=== PATIENT | male | born 1975 ===

== ENCOUNTER 2018-04-15 05:38 | Observation (INO) | payer OTHER ==
[2018-04-15] VITALS (14 sets, daily range): BP systolic 116–132; BP diastolic 71–88
[~2018-04-15] VITALS: Ht 177.8 cm; Wt 78.5 kg
[~2018-04-15 05:38] MED LIST: NKM
[2018-04-15] MEDS ORDERED: EPINEPHrine 1mg/1ml Amp ONE (06:55)
[2018-04-15] MEDS ORDERED: Vancomycin 1gm inj IVPB ONE (06:56)
[2018-04-15] MEDS ORDERED: Thrombin 5000 units spray kit TOPIC ONE (06:56)
[2018-04-15] MEDS ORDERED: Bupivacaine 0.5% Inj 30 ml vial INJ ONE (06:57)
[2018-04-15] MEDS ORDERED: Thrombin 5000 units TOPIC ONE (06:57)
[2018-04-15] MEDS ORDERED: Gelfoam Size TOPIC ONE (06:57)
[2018-04-15] MEDS ORDERED: Gelfoam Absorbable 1gm powder pkt TOPIC ONE (06:58)
[2018-04-15] MEDS ORDERED: Bacitracin 50000 Units Vial ONE (06:58)
[2018-04-15] MEDS ORDERED: NS Irrig 1000ml ONE (07:00)
[2018-04-15] MEDS ORDERED: Sterile Water Irrig 1000ml IRRIG ONE (07:00)
[2018-04-15] MEDS ORDERED: LR 1000ml ONE (07:00)
--- NOTE | 2018-04-15 07:01 | Anethesia Preoperative Eval ---
Anesthesia Pre-op PMH/ROS General Date of Evaluation: Apr 15, 2018 Time of Evaluation: 07:00 Anesthesiologist: ASA Score: ASA 2 Mallampati Score Class I : Soft palate, uvula, fauces, pillars visible Class II: Soft palate, uvula, fauces visible Class III: Soft palate, base of uvula visible Class IV: Only hard plate visible Mallampati Classification: Class II Surgeon: alta Diagnosis: lumbar radiculopathy Surgical Procedure: left L4,5 decompression and microdiscectomy Anesthesia History: none Allergies: Coded Allergies: No Known Allergies (Unverified , 04/14/18) Medications: see eMAR Past Medical History Cardiovascular: Denies: HTN, CAD, [place], valve dz, arrhythmia, other Pulmonary: Denies: asthma, COPD, DORYS, other Gastrointestinal/Genitourinary: Denies: GERD, CRI, ESRD, other Neurologic/Psychiatric: Denies: dementia, CVA, depression/anxiety, TIA, other Endocrine: Denies: DM, hypothyroidism, steroids, other HEENT: Denies: cataract (L), cataract (R), glaucoma, [place] (L), [place] (R), other Hematology/Immune: Denies: anemia, DVT, bleeding disorder, other Musculoskeletal/Integumentary: Denies: OA, RA, DJD, DDD, edema, other Anesthesia Pre-op Phys. Exam Physician Exam Last Vital Signs Date Time Temp Pulse Resp B/P (MAP) Pulse Ox O2 Delivery O2 Flow Rate FiO2 04/15/18 06:13 97.6 76 18 130/88 97 Room Air 97.6 Constitutional: NAD Cardiovascular: RRR Respiratory: CTA Gastrointestinal: S/NT/ND Airway Exam Mallampati Score: Class II MO: full ROM: full Teeth: intact Dentures: no upper, no lower Anesthesia Pre-op A/P Risk Assessment & Plan Assessment: asa 2 Plan: ETGA Pre-Antibiotics Drug: ancef 2 gams Given Within 1 Hr of Incision: Yes Time Given: 07:50 Ara Velarde M.D. Apr 15, 2018 07:01
[2018-04-15] MEDS ORDERED: Neostigmine 1mg/ml 10ml Inj ONE (07:08)
[2018-04-15] MEDS ORDERED: fentaNYL 100 mcg/2 mL IV ONE ×2 (07:08→09:57)
[2018-04-15] MEDS ORDERED: Zemuron 50mg/5ml Inj IV ONE (07:08)
[2018-04-15] MEDS ORDERED: Propofol 200mg/20ml IV ONE (07:19)
[2018-04-15] MEDS ORDERED: Lidocaine 1% MPF 10mg/ml 5ml ONE (07:19)
[2018-04-15] MEDS ORDERED: Ketamine 500mg Inj ONE (07:20)
--- NOTE | 2018-04-15 07:41 | Pre-Procedure Note/Attestation ---
Pre-Procedure Note/Attestation Complete Prior to Procedure Procedure Narrative: l l45 microdecompression and microdiscectomy Indications for Procedure Pre-Operative Diagnosis: lumbar hnp with radiculopathy Attestation I attest that I discussed the nature of the procedure; its benefits; risks and complications; and alternatives (and the risks and benefits of such alternatives ), prior to the procedure, with the patient (or the patient's legal customer contact representative). I attest that, if there was a reasonable possibility of needing a blood transfusion, the patient (or the patient's legal customer contact representative) was given the [facility] standardized written summary, pursuant to the Aníbal Gulshan Blood Safety Act ([place] Health and Safety Code # 1645, as amended). I attest that I re-evaluated the patient just prior to the surgery and that there has been no change in the patient's H&P, except as documented below: Link Churchill MD Apr 15, 2018 07:41
[2018-04-15] MEDS ORDERED: ceFAZolin sod 2 GM in NS 55 ML IVPB ONE (08:00)
[2018-04-15] MEDS ORDERED: Dexamethasone 4mg/ml vial ONE (08:29)
[2018-04-15] MEDS ORDERED: LR 1000ml 1,000 ML IVLG SCH (08:36)
--- NOTE | 2018-04-15 08:40 | Immediate Post-Op Evaluation ---
Immediate Post-Op Evalulation Immediate Post-Op Evalulation Procedure: lft L 4,5 decompression and microdiscectomy Date of Evaluation: Apr 15, 2018 Time of Evaluation: 09:51 IV Fluids: LR 700ml Blood Products: 0 Estimated Blood Loss: 20ml Urinary Output: 0 Blood Pressure Systolic: 128 Blood Pressure Diastolic: 86 Pulse Rate: 80 Respiratory Rate: 21 O2 Sat by Pulse Oximetry: 98 Temperature (Fahrenheit): 98.1 Pain Score (1-10): 3 Nausea: No Vomiting: No Complications none Patient Status: awake, patent, none Hydration Status: adequate Drug: ancef 2 grams Given Within 1 Hr of Incision: Yes Time Given: 07:50 Ara Velarde M.D. Apr 15, 2018 08:40
[2018-04-15] MEDS ORDERED: fentaNYL 100 mcg/2 mL IV PRN (08:45)
[2018-04-15] MEDS ORDERED: DiphenhydrAMINE 50mg/ml Inj IVP PRN (08:45)
[2018-04-15] MEDS ORDERED: Midazolam 2mg/2ml Inj IVP PRN (08:45)
[2018-04-15] MEDS ORDERED: Acetaminophen (Non formulary) 100 ML IV SCH (08:45)
[2018-04-15] MEDS ORDERED: Labetalol 5mg/ml 20ml vial IV PRN (08:45)
--- NOTE | 2018-04-15 09:22 | Brief Operative Note ---
Immediate Post Operative Note Operative Note Pre-op Diagnosis: lumbar hnp with radiculopathy Procedure: l l45 microdecompression and microdiscectomy Post-op Diagnosis: same as pre-op Findings: consistent w/pre-op dx studies Surgeon: Zhao Psychosocial Rehabilitation Counselor: Biju Anesthesiologist: Anesthesia: general Specimen: yes Complications: none Condition: stable Fluids: 700cc Estimated Blood Loss: minimal - 25cc Drains: none Implant(s) used?: No Link Churchill MD Apr 15, 2018 09:22
[2018-04-15] MEDS ORDERED: Ketorolac 30mg Inj ONE (10:01)
[2018-04-15] MEDS ORDERED: D5NS 1000ml IV ONE (10:11)
[2018-04-15] MEDS ORDERED: D5 1/2NS 1000ml IV ONE (10:11)
[2018-04-15] MEDS: Hydromorphone 0.5mg/0.5ml inj IVP PRN ×2 (10:14→10:38)
[2018-04-15] MEDS ORDERED: Morphine Sulfate 2mg/ml Inj(IV/IM USE ONLY) IV PRN ×2 (12:00→16:00)
[2018-04-15] MEDS ORDERED: Naloxone 0.4mg/ml Inj IVP PRN (12:00)
[2018-04-15] MEDS ORDERED: Norco 5mg/325mg tab ORAL PRN (12:00)
[2018-04-15] MEDS ORDERED: Morphine Sulfate 4mg/ml Inj (IV USE ONLY) IV PRN ×2 (12:00)
[2018-04-15] MEDS ORDERED: HYDROcodone/Acetamin 7.5/325 tab ORAL PRN (12:00)
[2018-04-15] MEDS: D5 1/2NS 1,000 ML IV SCH ×2 (12:07→21:23)
--- NOTE | 2018-04-15 12:26 | Diagnostic Imaging Report ---
Indication: Pain, intraoperative Technique: Intraoperative images Comparison: none Findings: There is a needle posterior to the L4 vertebral body. Impression: Intraoperative imaging, as described
--- NOTE | 2018-04-15 13:26 | History and Physical ---
History of Present Illness General Date patient seen: Apr 15, 2018 Present Illness HPI 42 year old male with hx of lumbar hnp with radiculopathy admitted for l l45 microdecompression and microdiscectomy. Post operatively pt is admitted to surgical floor for post-op care. Allergies: Coded Allergies: No Known Allergies (Unverified , 04/14/18) Medication History Scheduled No Known Medications* (NKM - No Known Medications*), 0 ., (Reported) Patient History Healthcare decision maker romaine baig(mother) Resuscitation status Full Code Advanced Directive on File No Past Medical/Surgical History Past Medical/Surgical History: (1) Lumbar radiculopathy Review of Systems All Other Systems: negative except mentioned in HPI Physical Exam General Appearance: WD/WN Lines, tubes and drains: peripheral HEENT: normocephalic, atraumatic Neck: non-tender, normal alignment Respiratory/Chest: chest wall non-tender, lungs clear Breasts: no masses Cardiovascular/Chest: normal peripheral pulses, normal rate Abdomen: normal bowel sounds Genitourinary/Rectal: normal genital exam Last 24 Hour Vital Signs Date Time Temp Pulse Resp B/P (MAP) Pulse Ox O2 Delivery O2 Flow Rate FiO2 04/15/18 12:00 98.7 63 18 130/71 98 Nasal Cannula 3 98.7 04/15/18 11:00 98.7 68 18 118/73 100 Nasal Cannula 3 98.7 04/15/18 11:00 98.7 04/15/18 10:47 98.7 65 16 116/73 98 Nasal Cannula 3 98.7 04/15/18 10:38 98.3 04/15/18 10:38 62 18 130/78 98 Nasal Cannula 3 04/15/18 10:25 68 21 119/72 98 Nasal Cannula 3 04/15/18 10:14 98.3 04/15/18 10:14 69 15 128/75 98 Nasal Cannula 3 04/15/18 10:07 208.6 80 21 98 04/15/18 10:00 69 19 131/87 98 Simple Mask 6 04/15/18 09:55 77 19 131/84 98 Simple Mask 6 04/15/18 09:50 98.1 80 20 128/86 98 Simple Mask 6 98.1 04/15/18 06:13 97.6 76 18 130/88 97 Room Air 97.6 Intake and Output 04/14/18 04/15/18 19:00 07:00 # Voids 1 Height (Feet): 5 Height (Inches): 10.00 Weight (Pounds): 173 Medications Current Medications Medications (Trade) Dose Ordered Sig/Giovanny Route PRN Reason Start Time Stop Time Status Last Admin Dose Admin Acetaminophen/ Hydrocodone Bitart ([place] 5/325) 1 tab Q3H PRN ORAL Mild Pain (Pain Scale 1-3) 04/15/18 12:00 04/22/18 11:59 Acetaminophen/ Hydrocodone Bitart ([place] 7.5/325) 1 tab Q3H PRN ORAL Moderate Pain (Pain Scale 4-6) 04/15/18 12:00 04/22/18 11:59 Acetaminophen/ Hydrocodone Bitart ([place] 7.5/325) 2 tab Q3H PRN ORAL pain scale 7-10 04/15/18 12:00 04/22/18 11:59 Dextrose/Sodium Chloride 1,000 ml @ 100 mls/hr Q10H IV 04/15/18 12:00 05/15/18 11:59 04/15/18 12:07 Docusate Sodium (Colace) 100 mg TWICE A DAY ORAL 04/15/18 18:00 05/15/18 17:59 Morphine Sulfate (Morphine Sulfate) 2 mg Q4H PRN IV Mild Pain (Pain Scale 1-3) 04/15/18 12:00 04/22/18 11:59 Morphine Sulfate (Morphine Sulfate) 4 mg Q3H PRN IV Severe Pain (Pain Scale 7-10) 04/15/18 12:00 04/22/18 11:59 Morphine Sulfate (Morphine Sulfate) 4 mg Q4H PRN IV Moderate Pain (Pain Scale 4-6) 04/15/18 12:00 04/22/18 11:59 Naloxone HCl (Narcan) 0.1 mg PRN PRN IVP RR<12/min, pt unarousable 04/15/18 12:00 05/15/18 11:59 Assessment/Plan Problem List: (1) lumbar hnp with radiculopathy (2) Lumbar radiculopathy ICD Codes: M54.16 - Radiculopathy, lumbar region SNOMED: [id number] Assessment/Plan post op care pain management dvt prophylaxis antiemetics Soniya Hernadez MD Apr 15, 2018 13:26
[2018-04-15] MEDS: Docusate 100mg cap ORAL SCH (17:23)
[2018-04-15] MEDS: HYDROcodone/Acetamin 7.5/325 tab ORAL PRN ×2 (17:24→21:24)
--- NOTE | 2018-04-15 21:31 | Operative Note - Dictated ---
DATE OF OPERATION: 04/15/2018 DATE OF INJURY: 07/30/2015 PREOPERATIVE DIAGNOSIS: L4-L5 disk protrusion with annular fissure/tear with stenosis, impingement, and left lower extremity radiculopathy. POSTOPERATIVE DIAGNOSIS: L4-L5 disk protrusion with annular fissure/tear with stenosis, impingement, and left lower extremity radiculopathy. PROCEDURE PERFORMED: 1. Left L4-L5 interlumbar laminotomy, medial facetectomy, foraminotomy, and microdiskectomy. 2. Intraoperative use of microscope. 3. Intraoperative use of fluoroscopy. SURGEON: Link Churchill M.D. PREANALYTICS TEAM LEAD: Wally Ivy M.D. ANESTHESIA: General endotracheal anesthesia. ANESTHESIOLOGIST: Dr. Velarde. FINDINGS: Central and left paracentral disk herniation/protrusion at L4-L5 causing impingement of the traversing left L5 nerve root with foraminal stenosis of the exiting L4 nerve root. ESTIMATED BLOOD LOSS: Less than 25 mL. FLUIDS: 700 mL of crystalloid. INDICATIONS: This is a pleasant gentleman with failed nonoperative treatment and options for above treatment was given. Risks, alternatives, and benefits were discussed with the patient at length. The patient wished to proceed. DESCRIPTION OF OPERATION: The patient was brought into the operating room supine on a stretcher. Subsequently, appropriate lines were placed. A 2 g of Ancef was administered. Anesthesia was induced and the patient was successfully intubated. Sequential compression devices were placed onto the bilateral lower extremities. The patient was gently turned prone on the Wolf frame table. All bony prominences were well padded. The abdomen was assured to lay freely. The L4-L5 interspace was positively identified via fluoroscopy and an indelible marker was used to glen the midline. Intraoperatively, sterilely draped microscope was brought into the field and at this point, a midline incision was carried out at L4-L5 and subperiosteal dissection of the lamina on the left side was done. A radiopaque marker was placed in the L5 pedicle and thus the L4-L5 interspace was positively identified. At this point, with a high-speed drill, straight and curved curettes, # 2 through #5 Kerrison punches, an interlumbar laminotomy and medial facetectomy was accomplished. Ligamentum flavum was removed. The medial aspect of the superior articular facet was removed, which was also impinging on the nerve. A foraminotomy was done for the exiting L4 nerve root and with a nerve root retractor, the neural elements were carefully retracted medially. Bipolar cautery was used to coagulate the epidural veins and at this point, a disk protrusion/herniation was found, central and left paracentral causing impingement on the neural elements and the traversing L5 nerve root. With an #11 blade, a cruciate incision was carried out and with Roger [place], Tiarra flores, a microdiskectomy entailed. All loose disk material was removed until the floor of the canal was flat. Disk space irrigation was done. Loose debris was removed. Further investigation of the interbody space revealed no further free fragment. A complete decompression of the central canal, lateral recess, foramina was assured. Valsalva at 40 mmHg was done and there was no CSF leak. At this point, attention was diverted to closure. The wound was copiously irrigated with Triple Antibiotic solution. Hemostasis was achieved. The dorsal lumbar fascia was closed with #1 Vicryl sutures in a watertight interrupted fashion. One gram of vancomycin powder was placed subfascially and suprafascially. The subdermal and subcuticular layers were closed with 2-0 Vicryl sutures. The skin was closed with Dermabond. Sterile dressing and tape was placed. All sponge, needle, and instrument counts were correct. There were no complications during the case. At this point, the patient was turned supine, was extubated, was taken to recovery room in stable condition and found to be neurovascularly intact. He was given a postoperative prescription for [place], Naprosyn, and Keflex and a postoperative appointment in 7 days. Link Churchill M.D. DR: JUAN FRANCISCO JOB#: [id number] CC:
--- NOTE | 2018-04-15 21:35 | 48 Hour Post Anesthesia Eval ---
Post Anesthesia Evaluation Procedure: lft L 4,5 decompression and microdiscectomy Date of Evaluation: Apr 15, 2018 Time of Evaluation: 09:39 Blood Pressure Systolic: 132 0: 88 Pulse Rate: 68 Respiratory Rate: 20 Temperature (Fahrenheit): 98.2 O2 Sat by Pulse Oximetry: 98 Airway: patent Nausea: No Vomiting: No Pain Intensity: 3 Hydration Status: adequate Cardiopulmonary Status: Stable Mental Status/LOC: patient returned to baseline Follow-up Care/Observations: 0 Post-Anesthesia Complications: 0 Follow-up care needed: N/A Beto Dhaliwal MD Apr 15, 2018 21:35
[2018-04-16] VITALS (7 sets, daily range): BP systolic 118–137; BP diastolic 73–89
[2018-04-16] MEDS: HYDROcodone/Acetamin 7.5/325 tab ORAL PRN (06:06)
[2018-04-16] MEDS: D5 1/2NS 1,000 ML IV SCH ×2 (06:54→17:23)
[2018-04-16] MEDS: Docusate 100mg cap ORAL SCH ×2 (08:31→17:22)
--- NOTE | 2018-04-16 11:43 | Pulmonology Progress Note ---
Assessment/Plan Assessment/Plan ASSESSMENT Herniated nucleus pulposus with lumbar radiculopathy s/p 04/15 L4- 5 microdecompression and microdiscectomy PLAN OF CARE Med Surg floor. pain management pain addressed and controlled neurovascularly intact dressing clean dry and intact PT OT eval and treatment fall precaution IS while in the bed , encouraged to use every hour 10 diet as tolerated ,antiemetics prn monitor voiding bowel regimen case discussed and evaluated by supervising physician Subjective Allergies: Coded Allergies: No Known Allergies (Unverified , 04/14/18) Subjective s/p surgery 04/15 afebrile pain controlled not worked yet with PT/OT Objective Last 24 Hour Vital Signs Date Time Temp Pulse Resp B/P (MAP) Pulse Ox O2 Delivery O2 Flow Rate FiO2 04/16/18 08:00 97.3 82 20 137/82 98 Room Air 97.3 04/16/18 07:05 98.2 04/16/18 06:06 98.2 04/16/18 04:00 97.7 59 19 137/82 96 Room Air 97.7 04/16/18 00:02 98.2 65 18 118/73 97 Room Air 98.2 04/16/18 00:00 98.2 65 18 118/73 97 Room Air 98.2 04/15/18 21:35 208.8 68 20 98 04/15/18 21:24 98.6 04/15/18 20:02 98.2 83 18 132/88 97 Room Air 98.2 04/15/18 20:00 98.2 68 20 132/88 97 Room Air 98.2 04/15/18 16:00 98.6 83 18 131/77 94 Room Air 98.6 04/15/18 12:00 98.7 63 18 130/71 98 Nasal Cannula 3 98.7 Intake and Output 04/15/18 04/16/18 19:00 07:00 Intake Total 2300 ml 1380 ml Output Total 620 ml 600 ml Balance 1680 ml 780 ml Intake Oral 600 ml 280 ml IV Total 1700 ml 1100 ml Output Urine Total 600 ml 600 ml Estimated Blood Loss 20 ml # Voids 1 General Appearance: no acute distress HEENT: normocephalic, atraumatic, anicteric, mucous membranes moist, PERRL Respiratory/Chest: lungs clear, no respiratory distress, no accessory muscle use Cardiovascular: normal rate, no JVD Abdomen: normal bowel sounds, soft, non tender Extremities: no edema, pedal pulses normal Neurologic/Psychiatric: alert, oriented x 3, responsive, other - n/v intact Musculoskeletal: normal muscle bulk Current Medications Medications (Trade) Dose Ordered Sig/Giovanny Route PRN Reason Start Time Stop Time Status Last Admin Dose Admin Acetaminophen/ Hydrocodone Bitart ([place] 5/325) 1 tab Q3H PRN ORAL Mild Pain (Pain Scale 1-3) 04/15/18 12:00 04/22/18 11:59 Acetaminophen/ Hydrocodone Bitart ([place] 7.5/325) 1 tab Q3H PRN ORAL Moderate Pain (Pain Scale 4-6) 04/15/18 12:00 04/22/18 11:59 Acetaminophen/ Hydrocodone Bitart ([place] 7.5/325) 2 tab Q3H PRN ORAL pain scale 7-10 04/15/18 12:00 04/22/18 11:59 04/16/18 06:06 Dextrose/Sodium Chloride 1,000 ml @ 100 mls/hr Q10H IV 04/15/18 12:00 05/15/18 11:59 04/16/18 06:54 Docusate Sodium (Colace) 100 mg TWICE A DAY ORAL 04/15/18 18:00 05/15/18 17:59 04/16/18 08:31 Morphine Sulfate (Morphine Sulfate) 4 mg Q3H PRN IV Severe Pain (Pain Scale 7-10) 04/15/18 12:00 04/22/18 11:59 Morphine Sulfate (Morphine Sulfate) 4 mg Q4H PRN IV Moderate Pain (Pain Scale 4-6) 04/15/18 12:00 04/22/18 11:59 Naloxone HCl (Narcan) 0.1 mg PRN PRN IVP RR<12/min, pt unarousable 04/15/18 12:00 05/15/18 11:59 Hawa Jerez NP Apr 16, 2018 11:43
--- NOTE | 2018-04-19 09:12 | Discharge Summary ---
Discharge Summary Hospital Course Date of Admission Apr 15, 2018 at 10:10 Date of Discharge Apr 16, 2018 at 21:05 Admitting Diagnosis lumbar radiculopathy Reason for Hospitalization: Elective surgery BRYANNA Kenny is a 42 year old male who was admitted on Apr 15, 2018 at 10:10 for Lumbar Radiculopathy. Patient was admitted for elective surgery. Consultations Dr. Hernadez-IM Procedures s/p 04/[address] Churchill 1. Left L4-L5 interlumbar laminotomy, medial facetectomy, foraminotomy, and microdiskectomy. 2. Intraoperative use of microscope. 3. Intraoperative use of fluoroscopy. Hospital Course s/p surgery pain management ; pain addressed and controlled neurovascularly intact dressing clean ,dry and intact PT / OT OOB, able to ambulate safely fall precaution IS while in the bed , encouraged to use every hour 10 tolerated diet , antiemetics prn voided freely bowel regimen instituted stable for dc home with out/pt fup with surgeon as advised by surgeon FINAL DIAGNOSES Herniated nucleus pulposus with lumbar radiculopathy s/p 04/15 L4- 5 microdecompression and microdiscectomy Discharge Condition Upon Discharge: stable Discharge Disposition Patient was discharged to Home () Hawa Jerez COIL MACHINE OPERATOR Apr 19, 2018 09:12
== END 2018-04-16 21:05 | disposition home or self-care (01) ==
LOC: SUR 05:38 → EDSTATUS 07:30 → 3E 10:10 → UNDOADMOB 10:10 → UNDODISOB 04-16 21:05
DX: M51.16 Intervertebral disc disorders with radiculopathy, lumbar region (principal)
CPT/HCPCS: 63030; 72020; 76000; 87081; 96360; 96361; 97110; 97116; 97161; 97530; G0378; J0171; J0690; J1100; J1170; J1200; J1885; J2250; J2405; J2704; J3010; J3370; J3490; J7120; S0028; 94003; 94150; J2710